=== PATIENT | female | born 1960 | race Caucasian/White ===

== ENCOUNTER 2017-12-24 13:59 | Outpatient (CLI) | payer OTHER | END 2017-12-24 14:11 | disposition home or self-care (01) | LOC: RAD 13:59 | DX: K59.09 Other constipation (principal) ==

== ENCOUNTER 2018-09-22 14:25 | Emergency (ER) | payer OTHER ==
[~2018-09-22] VITALS: Ht 152.4 cm; Wt 49.9 kg
== END 2018-09-22 19:49 | disposition home or self-care (01) ==
LOC: ER 14:25
DX: K59.09 Other constipation (principal); I88.1 Chronic lymphadenitis, except mesenteric

== ENCOUNTER 2019-06-20 09:18 | Emergency (ER) | payer OTHER ==
[~2019-06-20] VITALS: Ht 147.3 cm; Wt 49.9 kg
== END 2019-06-20 16:06 | disposition home or self-care (01) ==
LOC: ER 09:18
DX: N39.0 Urinary tract infection, site not specified (principal)

== ENCOUNTER 2019-09-10 12:12 | Outpatient (CLI) | payer OTHER | END 2019-09-10 12:15 | disposition home or self-care (01) | LOC: RX STUDY 12:12 | DX: R19.5 Other fecal abnormalities (principal); R10.13 Epigastric pain; R11.2 Nausea with vomiting, unspecified ==